=== PATIENT | male | born 1950 | race African-American/Black ===

== ENCOUNTER 2017-01-19 09:13 | Emergency (ER) | payer SELFPAY | END 2017-01-19 09:30 | disposition left against medical advice (07) | LOC: ER 09:30 | DX: Z53.21 Procedure and treatment not carried out due to patient leaving prior to being seen by health care provider (principal) ==

== ENCOUNTER 2017-01-19 16:26 | Emergency (ER) | payer SELFPAY ==
[~2017-01-19] VITALS: Ht 182.9 cm; Wt 97.0 kg
[2017-01-19 16:34] VITALS: BP 107/68
== END 2017-01-19 20:20 | disposition left against medical advice (07) ==
LOC: ER 16:26
DX: Z53.21 Procedure and treatment not carried out due to patient leaving prior to being seen by health care provider (principal)